=== PATIENT | female | born 1990 | race Caucasian/White ===

== ENCOUNTER 2023-07-29 18:43 | Emergency (ER) | payer OTHER ==
[~2023-07-29] VITALS: Ht 152.4 cm; Wt 43.1 kg
[2023-07-29 18:47] VITALS: BP_SYST 134; PULSE 86; RESP 18; TEMP 97.5; O2SAT 98
== END 2023-07-29 18:57 ==
LOC: SED 18:43
DX: Z00.00 Encounter for general adult medical examination without abnormal findings (principal); R94.31 Abnormal electrocardiogram [ECG] [EKG]
CPT/HCPCS: 93005; 99283